=== PATIENT | female | born 1950 | race Caucasian/White ===

== ENCOUNTER → 2017-08-14 | Outpatient (CLI) | payer MEDICARE, OTHER ==
--- NOTE | 2017-08-14 14:11 | RADIOLOGY REPORT (SQ) ---
EXAM DESCRIPTION: VENOUS UNILATERAL LOWER COMPLETED DATE/TIME: 08/14/2017 1:45 pm REASON FOR STUDY: THROMBOPHLEBITIS I80.9 PHLEBITIS AND THROMBOPHLEBITIS OF UNSPECIFIED SITE COMPARISON: 01/08/2016 TECHNIQUE: Dynamic and static hart scale and color images acquired of the right leg venous system. S elected spectral images acquired with additional compression and augmentation maneuvers. The contrala teral common femoral vein and saphenofemoral junction were also imaged. Images stored on PACS. LIMITATIONS: None. FINDINGS: COMMON FEMORAL: Normal phasicity, compression and augmentation. No visualized echogenic ma terial on hart scale. No defects on color images. FEMORAL: Normal compression and augmentation. No visualized echogenic material on hart scale. No defe cts on color images. POPLITEAL: Normal compression, augmentation. No visualized echogenic material on hart scale. No defec ts on color images. CALF VESSELS: Normal compression, augmentation. No visualized echogenic material on hart scale. No de fects on color images. GSV and SSV: Normal compression, augmentation. No visualized echogenic material on hart scale. No def ects on color images. ANY DEEP VENOUS INSUFFICIENCY: Not evaluated. ANY EVIDENCE OF POPLITEAL CYST: No. 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 CONTRALATERAL COMMON FEMORAL VEIN AND SAPHENOFEMORAL JUNCTION: Normal phasicity, compression and augmentation. No visualized echogenic material on hart scale. No de fects on color images. IMPRESSION: 1. There is no evidence of DVT in the right lower extremity. 2. 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 TECHNICAL DOCUMENTATION: JOB ID: [id number] [employer]- All Rights Reserved Reading location - IP/workstation name: [email or web address]
== END ==
LOC: SP 12:21
PROVIDERS: ATTEND Physician Assistant Medical
DX: M79.651 Pain in right thigh (principal); I83.811 Varicose veins of right lower extremity with pain
CPT/HCPCS: 93971

== ENCOUNTER 2018-06-10 09:33 | Day surgery (SDC) | payer MEDICARE, OTHER ==
[~2018-06-10 09:33] MED LIST: KETOROLAC TROMETHAMINE 0.45% 4 DROP/0.4 ML DROPERETTE OD PRN; LIDOCAINE 1% INJ-PF (10 MG/ML) 30 ML SDV ONE
[2018-06-10] MEDS: TROPICAMIDE 1% OPH SOLN 3 ML OD PRN ×3 (09:55→10:15)
[2018-06-10] MEDS: TETRACAINE HCL 0.5% OPH SOLN 0.6 ML DROPERETTE OD PRN ×3 (09:55→10:30)
[2018-06-10] MEDS: CYCLOPENTOLATE 0.2%/PHENYLEPHRINE 1% OPH SOLN 2 ML OD PRN ×3 (09:55→10:15)
[2018-06-10] MEDS: BESIFLOXACIN HCL 0.6% OPH SUSP 5 ML BOTTLE OD PRN ×4 (09:55→10:48)
[2018-06-10] MEDS ORDERED: MIDAZOLAM 2 MG/2 ML INJ ONE (10:08)
[2018-06-10] MEDS: EPINEPHRINE INJ/PF 1 MG/1 ML AMPULE ONE ×2 (10:37→10:48)
[2018-06-10] MEDS: CHONDR SU A NA/HYALUR INTRAOC KIT (SURGICARE) ONE ×2 (10:37→10:48)
[2018-06-10] MEDS: TOBRAMYCIN SULFATE/DEXAMETH OPH OINTMENT 3.5 GM ONE ×2 (10:37→10:48)
== END 2018-06-10 11:28 | disposition home or self-care (01) ==
LOC: SC 09:33
PROVIDERS: ATTEND Ophthalmology
DX: H25.11 Age-related nuclear cataract, right eye (principal); Z86.718 Personal history of other venous thrombosis and embolism
CPT/HCPCS: 66984; V2630; J2250; J3490 ×3; A9270; J0171; 142